=== PATIENT | female | born 1985 | race Caucasian/White ===

== ENCOUNTER 2018-10-03 14:46 | Outpatient (CLI) | payer OTHER | END 2018-10-03 23:59 | disposition home or self-care (01) | LOC: CFH 14:46 | PROVIDERS: ATTEND Nurse Practitioner Family | DX: S90.02XA Contusion of left ankle, initial encounter (principal); M77.32 Calcaneal spur, left foot; M79.89 Other specified soft tissue disorders; X58.XXXA Exposure to other specified factors, initial encounter; Y93.89 Activity, other specified; Y92.89 Other specified places as the place of occurrence of the external cause; Y99.8 Other external cause status ==

== ENCOUNTER 2018-12-21 07:27 | Outpatient (CLI) | payer OTHER | END 2018-12-21 23:59 | disposition home or self-care (01) | LOC: RAD 07:27 | PROVIDERS: ATTEND Nurse Practitioner Family | DX: R13.12 Dysphagia, oropharyngeal phase (principal); K22.2 Esophageal obstruction | CPT/HCPCS: 74247 ==